=== PATIENT | female | born 1985 | race Caucasian/White ===

== ENCOUNTER 2017-07-19 14:27 | Outpatient (CLI) | payer BC ==
--- NOTE | 2017-07-19 16:44 | ULT ---
THYROID SONOGRAM: History: Abnormal function test. FINDINGS: Right thyroid lobe is 3.5 cm in length and the left 3.0 cm. Each has a heterogeneous echo texture wi th tiny calcifications. No focal masses are apparent. The isthmus is 0.2 cm in thickness. IMPRESSION: 1. No significant abnormalities are demonstrated. POS: [facility]
== END 2017-07-19 14:28 | disposition home or self-care (01) ==
LOC: ULT 14:27
PROVIDERS: ATTEND Family Medicine
DX: R94.6 Abnormal results of thyroid function studies (principal)
CPT/HCPCS: 76536